=== PATIENT | female | born 1985 | race Caucasian/White ===

== ENCOUNTER 2016-11-08 16:59 | Emergency (ER) | payer OTHER ==
[2016-11-08 17:05] VITALS: BMI 19.8
[2016-11-08] MEDS ORDERED: SODIUM CHLORIDE 500 ML IV STA (18:04)
[2016-11-08 18:27] LABS: BASOPHIL 0.3 % (0-2.0); EOSINOPHIL 0.6 % (0-4.5); MCHC 32.1 g/dl (32.0-36.0); MEAN PLT VOLUME 8.9 fl (7.5-11.1); NEUTROPHILS 70.8 % (42.8-82.8); PLATELET COUNT 249 K/MM3 (134-434); RDW 14.1 % (11.6-15.6); WHITE BLOOD COUNT 5.6 K/mm3 (4.0-10.0)
[2016-11-08 19:18] LABS: ALBUMIN 4.4 g/dl (3.4-5.0); ANION GAP 6 (8-16); BILIRUBIN,TOTAL 0.4 mg/dL (0.2-1.0); CALCIUM 9.2 mg/dL (8.5-10.1); CO2 28 mmol/L (21-32); CREATININE 0.7 mg/dL (0.55-1.02); GLUCOSE,RANDOM 82 mg/dL (74-106); SGOT/AST 14 U/L (15-37); SGPT/ALT 15 U/L (12-78); TOT PROT 7.7 g/dl (6.4-8.2)
[2016-11-08 19:19] LABS: ALK PHOS 69 U/L (45-117)
[2016-11-08 19:51] LABS: URINE APPEARANCE SLCLOUDY; URINE BILIRUBIN NEGATIVE (NEGATIVE); URINE BLOOD 2+ (NEGATIVE); URINE COLOR YELLOW; URINE GLUCOSE (UA) NEGATIVE (NEGATIVE); URINE KETONE NEGATIVE (NEGATIVE); URINE LEUK ESTERASE NEGATIVE (NEGATIVE); URINE NITRITE NEGATIVE (NEGATIVE); URINE PROTEIN 1+ (NEGATIVE); URINE UROBILINOGEN NEGATIVE E.U./dl (0.2-1.0)
--- NOTE | 2016-11-08 20:06 | PDOC ---
History of Present Illness <Karla Bill - Last Filed: 11/08/16 20:06> - History of Present Illness Initial Comments: 11/08/16 20:37 Patient is a 31 year old female, paraplegic, wheelchair bound, with significant medical hx of dystonia musculorum deformans and chronic constipation, who is presenting to the ED with one week of dark stools. The patient is accompanied by family who reports the patient hasnt been eating or taking in liquids. She s also been refusing to take her medication recently, specifically her baclofen. She also complains of some mild diffuse abdominal pain. The patient is non-verbal but she answered questions by texting on her phone. The patient denies taking any iron supplements or pepto bismol. Denies fevers, chills, nausea, vomiting, bright red blood per rectum, or diarrhea. PCP: Uyen Shepard MD <Tameka Conley - Last Filed: 11/08/16 20:40> - General Chief Complaint: Pain Stated Complaint: LOSS OF APPETITE/ABD PAIN/DARK STOOL Time Seen by Provider: 11/08/16 17:25 Past History - Past Medical History Anemia: Yes Seizures: (Dystonia, Parkinson's disease.) Other medical history: Fell at 8 years ago hit head, and then started having Dystonia - Psycho/Social/Smoking Cessation Hx Anxiety: No Suicidal Ideation: No Smoking Status: No Smoking History: Never smoked Number of Cigarettes Smoked Daily: 0 Information on smoking cessation initiated: No Hx Alcohol Use: No Drug/Substance Use Hx: No Substance Use Type: None Hx Substance Use Treatment: No <Karla Bill - Last Filed: 11/08/16 20:06> <Tameka Conley - Last Filed: 11/08/16 20:40> - Past Medical History Allergies/Adverse Reactions: Allergies Allergy/AdvReac Type Severity Reaction Status Date / Time No Known Allergies Allergy Verified 11/08/16 17:05 Home Medications: Ambulatory Orders Baclofen [Lioresal -] 20 mg PO ASDIR 07/28/12 Olanzapine 5 mg PO HS 07/28/12 Sertraline HCl 50 mg PO HS 07/28/12 Ibuprofen 600 mg PO Q6H PRN #20 tablet 12/09/15 Dantrolene Sodium [Dantrium -] 50 mg PO TID 03/26/16 Review of Systems - Review of Systems Comments:: 11/08/16 20:38 CONSTITUTIONAL: Absent: fever, chills, diaphoresis, generalized weakness, malaise, loss of appetite HEENT: Absent: rhinorrhea, nasal congestion, throat pain, throat swelling, difficulty swallowing, mouth swelling, ear pain, eye pain, visual changes CARDIOVASCULAR: Absent: chest pain, syncope, palpitations, irregular heart rate, lightheadedness , peripheral edema RESPIRATORY: Absent: cough, shortness of breath, dyspnea with exertion, orthopnea, wheezing, stridor, hemoptysis GASTROINTESTINAL: Present: generalized abdominal pain, dark stools Absent: abdominal distension, nausea, vomiting, diarrhea, constipation hematochezia GENITOURINARY: Absent: dysuria, frequency, urgency, hesitancy, hematuria, flank pain, genital pain MUSCULOSKELETAL: Absent: myalgia, arthralgia, joint swelling SKIN: Absent: rash, itching, pallor HEMATOLOGIC/IMMUNOLOGIC: Absent: easy bleeding, easy bruising, lymphadenopathy, frequent infections ENDOCRINE: Absent: unexplained weight gain, unexplained weight loss, heat intolerance, cold intolerance NEUROLOGIC: Absent: headache, focal weakness or paresthesia, dizziness, unsteady gait, seizure, mental status changes, bladder or bowel incontinence. PSYCHIATRIC: Absent: anxiety, depression, suicidal or homicidal ideation, hallucinations <Tameka Conley - Last Filed: 11/08/16 20:40> *Physical Exam - Vital Signs Last Vital Signs Temp Pulse Resp BP Pulse Ox 98 F 68 14 96/67 100 11/08/16 17:02 11/08/16 19:08 11/08/16 19:08 11/08/16 19:08 11/08/16 19:08 <Karla Bill - Last Filed: 11/08/16 20:06> - Vital Signs Last Vital Signs Temp Pulse Resp BP Pulse Ox 98 F 68 14 96/67 100 11/08/16 17:02 11/08/16 19:08 11/08/16 19:08 11/08/16 19:08 11/08/16 19:08 - Physical Exam Comments: 11/08/16 20:38 GENERAL: Well developed, well nourished. Awake and alert. No acute distress. HEENT: Normocephalic, atraumatic. PERRLA, EOMI. No conjunctival pallor. Sclera are non- icteric. Moist mucous membranes. Oropharynx is clear. NECK: Supple. Full ROM. No JVD. Carotid pulses 2+ and symmetric, without bruits. No thyromegaly. No lymphadenopathy. CARDIOVASCULAR: Regular rate and rhythm. No murmurs, rubs, or gallops. Distal pulses are 2+ and symmetric. PULMONARY: No evidence of respiratory distress. Lungs clear to auscultation bilaterally. No wheezing, rales or rhonchi. ABDOMINAL: Soft. Non-tender. Non-distended. No rebound or guarding. No organomegaly. Normoactive bowel sounds. MUSCULOSKELETAL: Normal range of motion at all joints. No bony deformities or tenderness. No CVA tenderness. EXTREMITIES: Contracted digits bilaterally. No cyanosis. No clubbing. No edema. No calf tenderness. SKIN: Warm and dry. Normal capillary refill. No rashes. No jaundice. NEUROLOGICAL: Alert, awake, appropriate. Paraplegia. Non-verbal. Able to answer questions by texting on cell phone. PSYCHIATRIC: Cooperative. Good eye contact. Appropriate mood and affect. <Tameka Conley - Last Filed: 11/08/16 20:40> ED Treatment Course - LABORATORY CBC & Chemistry Diagram: 11/08/16 16:50 11/08/16 16:50 - ADDITIONAL ORDERS Additional order review: Laboratory Results 11/08/16 11/08/16 11/08/16 19:05 17:15 16:50 Sodium 137 Potassium 4.4 Chloride 103 Carbon Dioxide 28 Anion Gap 6 L BUN 8 D Creatinine 0.7 Creat Clearance w eGFR > 60 Random Glucose 82 Calcium 9.2 Total Bilirubin 0.4 D AST 14 L D ALT 15 Alkaline Phosphatase 69 Total Protein 7.7 Albumin 4.4 Lipase 109 Urine Color Yellow Urine Appearance Slcloudy Urine pH 8.0 D Urine Protein 1+ H Urine Glucose (UA) Negative Urine Ketones Negative Urine Blood 2+ H Urine Nitrite Negative Urine Bilirubin Negative Urine Urobilinogen Negative Ur Leukocyte Esterase Negative Blood Type A POSITIVE Antibody Screen Negative 11/08/16 16:50 RBC 4.18 MCV 87.0 MCHC 32.1 RDW 14.1 MPV 8.9 Neutrophils % 70.8 Lymphocytes % 20.1 D Monocytes % 8.2 Eosinophils % 0.6 D Basophils % 0.3 - Medications Given in the ED: ED Medications Discontinued Medications Generic Name Dose Route Start Last Admin Trade Name Freq PRN Reason Stop Dose Admin Sodium Chloride 500 mls @ 500 mls/hr 11/08/16 18:04 11/08/16 18:07 Normal Saline - IV 11/08/16 19:03 500 mls/hr ASDIR STA Administration <Karla Bill - Last Filed: 11/08/16 20:06> - LABORATORY CBC & Chemistry Diagram: 11/08/16 16:50 11/08/16 16:50 - ADDITIONAL ORDERS Additional order review: Laboratory Results 11/08/16 11/08/16 11/08/16 19:05 17:15 16:50 Sodium 137 Potassium 4.4 Chloride 103 Carbon Dioxide 28 Anion Gap 6 L BUN 8 D Creatinine 0.7 Creat Clearance w eGFR > 60 Random Glucose 82 Calcium 9.2 Total Bilirubin 0.4 D AST 14 L D ALT 15 Alkaline Phosphatase 69 Total Protein 7.7 Albumin 4.4 Lipase 109 Urine Color Yellow Urine Appearance Slcloudy Urine pH 8.0 D Urine Protein 1+ H Urine Glucose (UA) Negative Urine Ketones Negative Urine Blood 2+ H Urine Nitrite Negative Urine Bilirubin Negative Urine Urobilinogen Negative Ur Leukocyte Esterase Negative Blood Type A POSITIVE Antibody Screen Negative 11/08/16 16:50 RBC 4.18 MCV 87.0 MCHC 32.1 RDW 14.1 MPV 8.9 Neutrophils % 70.8 Lymphocytes % 20.1 D Monocytes % 8.2 Eosinophils % 0.6 D Basophils % 0.3 - Medications Given in the ED: ED Medications Discontinued Medications Generic Name Dose Route Start Last Admin Trade Name Freq PRN Reason Stop Dose Admin Sodium Chloride 500 mls @ 500 mls/hr 11/08/16 18:04 11/08/16 18:07 Normal Saline - IV 11/08/16 19:03 500 mls/hr ASDIR STA Administration <Tameka Conley - Last Filed: 11/08/16 20:40> *DC/Admit/Observation/Transfer <Karla Bill - Last Filed: 11/08/16 20:06> - Attestations Scribe Attestion: 11/08/16 20:40 Documentation prepared by Tameka Conley, acting as medical billing instructor for Karla Bill MD. <Tameka Conley - Last Filed: 11/08/16 20:40> Diagnosis at time of Disposition: Loss of appetite, Dark stools - Discharge Dispostion Disposition: HOME Condition at time of disposition: Stable - Referrals Referrals: Uyen Shepard MD [Primary Care Provider] - - Patient Instructions Printed Discharge Instructions: Dystonia Movement Disorders, DI for Poor Appetite Additional Instructions: please follow up with your doctor
[2016-11-08 20:46] VITALS: BP 98/67; PULSE 70; TEMP 97.8
[2016-11-08 21:29] LABS: URINE BACTERIA RARE /hpf (NONE SEEN); URINE MUCUS RARE; URINE RBC 6 /hpf (0-3); URINE WBC 3 /hpf (3-5)
== END 2016-11-08 20:46 | disposition home or self-care (01) ==
LOC: JER 16:59
PROC: 3E0337Z Introduction of Electrolytic and Water Balance Substance into Peripheral Vein, Percutaneous Approach (ICD-10-PCS; principal; 2016-11-08)
DX: R63.0 Anorexia (principal); K59.09 Other constipation; G24.1 Genetic torsion dystonia; Z99.3 Dependence on wheelchair
CPT/HCPCS: 36415; 80053; 81003; 81015; 83690; 85025; 86850; 86900; 86901; 96360; 99284-25

== ENCOUNTER 2022-02-28 10:18 | Emergency (ER) | payer OTHER ==
[2022-02-28 10:28] VITALS: BP 109/62; PULSE 89; RESP 17; TEMP 98.3; BMI 19.9
[2022-02-28] MEDS ORDERED: FAMOTIDINE 20 MG/50 ML IVPB 20 MG in PREMIX 50 IVPB ONE (11:03)
[2022-02-28] MEDS ORDERED: ACETAMINOPHEN 1000 MG/100 ML BAG IVPB ONE (11:03)
[2022-02-28] MEDS ORDERED: SODIUM CHLORIDE 0.9% 500 ML INFUS.BAG IV ONE (11:03)
[2022-02-28] MEDS ORDERED: MAG HYDROX/AL HYDROX/SIMETH -MYLANTA- ORAL SUSPENSION PO ONE (11:03)
[2022-02-28] MEDS ORDERED: ONDANSETRON 4 MG/2 ML VIAL IVPB ONE (11:03)
[2022-02-28] MEDS ORDERED: FAMOTIDINE 20 MG/50 ML IVPB 20 MG/50 ML MG IVPB ONE (12:14)
[2022-02-28] MEDS ORDERED: ONDANSETRON 4 MG/2 ML VIAL ONE (12:14)
[2022-02-28] MEDS ORDERED: ACETAMINOPHEN INJECTION 100 ML IVPB ONE (12:14)
[2022-02-28] MEDS ORDERED: MAG HYDROX/AL HYDROX/SIMETH 30 ML UNIT-DOSE CUP ONE (12:14)
[2022-02-28 12:23] LABS: VENOUS BASE EXCESS -1.8 mmol/L (-2-2); VENOUS O2 SATURATION 31.7 % (70-80); VENOUS PH 7.38 (7.310-7.410)
[2022-02-28 12:27] LABS: BASO % 0.4 % (0-2.0); EOS % 1.6 % (0-4.5); HEMATOCRIT 40.1 % (32.4-45.2); LYMPH % 22.6 % (8-40); MCH 28.6 pg (25.7-33.7); MCHC 32.5 g/dl (32.0-36.0); MEAN CELL VOLUME 88.2 fl (80-96); MEAN PLT VOLUME 8.1 fl (7.5-11.1); MONO % 8.2 % (3.8-10.2); NEUT % 67.2 % (42.8-82.8); PLATELET COUNT 214 10^3/uL (134-434); RBC 4.55 M/mm3 (3.60-5.2); RDW 14.5 % (11.6-15.6); WHITE BLOOD COUNT 5.9 K/mm3 (4.0-10.0)
[2022-02-28 12:57] LABS: CHLORIDE 106 mmol/L (98-107); SODIUM 140 mmol/L (136-145)
[2022-02-28 12:59] LABS: ALBUMIN 4.2 g/dl (3.4-5.0); ANION GAP 7 MMOL/L (8-16); CALCIUM 9.2 mg/dL (8.5-10.1); CO2 28 mmol/L (21-32); LIPASE 101 U/L (73-393)
[2022-02-28 13:00] LABS: BLOOD UREA NITROGEN 11.3 mg/dL (7-18); GLUCOSE,RANDOM 84 mg/dL (74-106)
[2022-02-28 13:02] LABS: CREATININE 0.5 mg/dL (0.55-1.3); SGOT/AST 36 U/L (15-37); SGPT/ALT 19 U/L (13-61)
[2022-02-28 13:04] LABS: BILIRUBIN,TOTAL 0.3 mg/dL (0.2-1); TOT PROT 7.5 g/dl (6.4-8.2)
[2022-02-28 13:05] LABS: ALK PHOS 71 U/L (45-117)
[2022-02-28 13:53] LABS: PH,URINE 8.5 (5.0-8.0); URINE APPEARANCE TURBID; URINE BILIRUBIN NEGATIVE (NEGATIVE); URINE COLOR YELLOW; URINE GLUCOSE (UA) NEGATIVE (NEGATIVE); URINE KETONE NEGATIVE (NEGATIVE); URINE LEUK ESTERASE NEGATIVE (NEGATIVE); URINE NITRITE NEGATIVE (NEGATIVE); URINE PROTEIN NEGATIVE (NEGATIVE); URINE UROBILINOGEN 0.2 mg/dL (0.2-1.0)
== END 2022-02-28 15:13 | disposition home or self-care (01) ==
LOC: JER 10:18
PROC: 3E0333Z Introduction of Anti-inflammatory into Peripheral Vein, Percutaneous Approach (ICD-10-PCS; principal; 2022-02-28)
PROC: 3E033GC Introduction of Other Therapeutic Substance into Peripheral Vein, Percutaneous Approach (ICD-10-PCS; 2022-02-28)
PROC: 3E033GC Introduction of Other Therapeutic Substance into Peripheral Vein, Percutaneous Approach (ICD-10-PCS; 2022-02-28)
DX: R10.13 Epigastric pain (principal)
CPT/HCPCS: 36415; 71045-TC-FY; 76705-TC; 80053; 81003; 82803; 83605; 83690; 84702; 85025; 93005; 93010; 96374; 96375; 99285-25

== ENCOUNTER 2023-04-05 11:58 | Emergency (ER) | payer OTHER ==
[2023-04-05 12:23] VITALS: BMI 22.1
[2023-04-05 12:44] VITALS: RESP 18
[2023-04-05] MEDS ORDERED: FAMOTIDINE 20 MG/50 ML IVPB 20 MG/50 ML MG IVPB ONE ×2 (13:01→13:12)
[2023-04-05] MEDS ORDERED: ACETAMINOPHEN 1000 MG/100 ML BAG IVPB ONE (13:01)
[2023-04-05] MEDS ORDERED: MAG HYDROX/AL HYDROX/SIMETH 30 ML UNIT-DOSE CUP PO ONE (13:01)
[2023-04-05] MEDS ORDERED: ACETAMINOPHEN INJECTION 100 ML IVPB ONE (13:11)
[2023-04-05] MEDS ORDERED: MAG HYDROX/AL HYDROX/SIMETH 30 ML UNIT-DOSE CUP ONE (13:12)
[2023-04-05] MEDS ORDERED: SODIUM CHLORIDE 0.9% 500 ML INFUS.BAG IV ONE (13:19)
[2023-04-05 13:34] LABS: BASO % 0.4 % (0-2.0); EOS % 1.9 % (0-4.5); HEMATOCRIT 40.3 % (32.4-45.2); HEMOGLOBIN 12.9 GM/dL (10.7-15.3); LYMPH % 11.8 % (8-40); MCH 28.2 pg (25.7-33.7); MCHC 32.1 g/dl (32.0-36.0); MEAN CELL VOLUME 87.7 fl (80-96); MEAN PLT VOLUME 7.9 fl (7.5-11.1); MONO % 6.9 % (3.8-10.2); PLATELET COUNT 189 10^3/uL (134-434); RBC 4.59 M/mm3 (3.60-5.2); RDW 14.5 % (11.6-15.6); WHITE BLOOD COUNT 10.7 K/mm3 (4.0-10.0)
[2023-04-05 14:03] LABS: POTASSIUM 4.9 mmol/L (3.5-5.1)
[2023-04-05 14:05] LABS: ALBUMIN 3.9 g/dl (3.4-5.0); BLOOD UREA NITROGEN 8.2 mg/dL (7-18); CALCIUM 8.7 mg/dL (8.5-10.1); MAGNESIUM 2.1 mg/dL (1.8-2.4)
[2023-04-05 14:08] LABS: CREATININE 0.6 mg/dL (0.55-1.3)
[2023-04-05 14:10] LABS: BILIRUBIN,TOTAL 0.6 mg/dL (0.2-1); TOT PROT 7.6 g/dl (6.4-8.2)
[2023-04-05] MEDS ORDERED: KETOROLAC TROMETHAMINE 15 MG/ML VIAL IVPUSH ONE (15:58)
[2023-04-05 16:01] LABS: EPI CELLS >36 /uL (0-25.1); HYALINE CASTS 1 /uL (0-3.1); URINE APPEARANCE CLEAR; URINE BACTERIA 1267 /uL (0-1359); URINE BILIRUBIN NEGATIVE (NEGATIVE); URINE COLOR YELLOW; URINE GLUCOSE (UA) NEGATIVE (NEGATIVE); URINE KETONE NEGATIVE (NEGATIVE); URINE LEUK ESTERASE 3+ (NEGATIVE); URINE NITRITE NEGATIVE (NEGATIVE); URINE PROTEIN NEGATIVE (NEGATIVE); URINE WBC 54 /uL (0-25.8)
[2023-04-05] MEDS ORDERED: KETOROLAC TROMETHAMINE 15 MG/ML VIAL ONE (16:05)
[2023-04-05] MEDS ORDERED: CEFTRIAXONE 1,000 MG in DEXTROSE 5%-WATER - 50 ML IVPB ONE (17:06)
[2023-04-05] MEDS ORDERED: CEFTRIAXONE 1 GM/50 ML BAG ONE (17:19)
[2023-04-05 20:21] VITALS: BP 98/65; PULSE 93; TEMP 98.8
== END 2023-04-05 21:32 | disposition home or self-care (01) ==
LOC: JER 11:58
PROC: 3E033GC Introduction of Other Therapeutic Substance into Peripheral Vein, Percutaneous Approach (ICD-10-PCS; principal; 2023-04-05)
PROC: 3E033GC Introduction of Other Therapeutic Substance into Peripheral Vein, Percutaneous Approach (ICD-10-PCS; 2023-04-05)
PROC: 3E033NZ Introduction of Analgesics, Hypnotics, Sedatives into Peripheral Vein, Percutaneous Approach (ICD-10-PCS; 2023-04-05)
PROC: 3E0333Z Introduction of Anti-inflammatory into Peripheral Vein, Percutaneous Approach (ICD-10-PCS; 2023-04-05)
DX: R10.13 Epigastric pain (principal); R10.33 Periumbilical pain; R50.9 Fever, unspecified; R05.9 Cough, unspecified; H92.02 Otalgia, left ear; J18.9 Pneumonia, unspecified organism; N39.0 Urinary tract infection, site not specified; Z20.822 Contact with and (suspected) exposure to COVID-19
CPT/HCPCS: 0241U-QW; 36415; 71045-TC-FY; 74177-TC; 76705-TC; 80053; 81003; 83690; 83735; 84703; 85025; 87086; 87186; 93005; 93010; 99285-25; Q9967

== ENCOUNTER 2024-02-29 22:45 | Emergency (ER) | payer OTHER ==
[2024-02-29 22:55] VITALS: RESP 18; BMI 18.4
[2024-03-01] MEDS: KETOROLAC TROMETHAMINE 30 MG/1 ML VIAL IM ONE (00:26)
[2024-03-01] MEDS: LIDOCAINE 4% PATCH TP ONE (00:26)
[2024-03-01] MEDS: LIDOCAINE PATCH REMOVAL MC SCH (00:27)
[2024-03-01] MEDS ORDERED: LIDOCAINE 4% PATCH TP ONE (00:29)
[2024-03-01] MEDS ORDERED: KETOROLAC TROMETHAMINE 30 MG/1 ML VIAL ONE (00:30)
[2024-03-01 01:40] VITALS: BP 99/66; PULSE 88; TEMP 98.5
== END 2024-03-01 05:05 | disposition home or self-care (01) ==
LOC: JER 22:45
PROC: 3E0133Z Introduction of Anti-inflammatory into Subcutaneous Tissue, Percutaneous Approach (ICD-10-PCS; principal; 2024-03-01)
DX: M54.50 Low back pain, unspecified (principal)
CPT/HCPCS: 72100-TC-FY; 72170-TC-FY; 72220-TC-FY; 99284-25